=== PATIENT | female | born 1970 | race Caucasian/White ===

== ENCOUNTER → 2022-11-22 11:56 | Outpatient (CLI) | payer BC, SELFPAY ==
[2022-11-22 14:42] LABS: Follicle Stimulating Hormone 59.4 mIU/mL
== END ==
PROVIDERS: PCP Physician Assistant; Referring Provider Obstetrics & Gynecology; Visit Provider Obstetrics & Gynecology
DX: N95.1 Menopausal and female climacteric states (principal)
CPT/HCPCS: 36415; 82670; 83001

== ENCOUNTER → 2023-02-02 07:37 | Outpatient (CLI) | payer BC, SELFPAY ==
[2023-02-10 14:57] LABS: Percent Free Testosterone 0.97 % (0.50-2.80); Testosterone Free 0.17 ng/dL (0.10-0.85); Testosterone Total 17.6 ng/dL (.)
== END ==
PROVIDERS: PCP Physician Assistant; Referring Provider Obstetrics & Gynecology; Visit Provider Obstetrics & Gynecology
DX: Z78.0 Asymptomatic menopausal state (principal)
CPT/HCPCS: 36415; 84402; 84403

== ENCOUNTER → 2023-08-15 09:50 | Outpatient (CLI) | payer BC, SELFPAY ==
--- NOTE | 2023-08-15 09:51 | DI.MRI.S_ITS ---
PROCEDURE: MR CERVICAL SPINE WO CON INDICATIONS: cervical radiculopathy TECHNIQUE: Noncontrast sagittal T1 spin echo and T2 fast spin echo, sagittal STIR, foraminal oblique sagittal T2 fast spin echo, and axial gradient echo or T2 fast spin echo through the cervical spine. COMPARISON: None. FINDINGS: Image quality: Excellent. Alignment and Curvature: There is normal bony alignment. Bone Marrow: Marrow demonstrates normal overall signal. Spinal Cord: Visualized spinal cord has normal size and signal. No cerebellar tonsillar herniation. Paraspinous Soft Tissues: No paravertebral masses. Prevertebral soft tissues are normal in thickness. C2-C3: Normal appearance. C3-C4: Normal appearance. C4-C5: Normal appearance. C5-C6: Normal appearance. C6-C7: Disc space narrowing posterior disc osteophyte complex results in mild central stenosis. Hypertrophic uncovertebral joints results in moderate left and mild right foraminal stenosis C7-T1: Normal appearance. IMPRESSION: Degenerative disc disease and arthropathy at C6-7 results in moderate left and mild right foraminal stenosis Approved by: Harjinder Sotomayor M.D. on 08/16/2023 at 8:25
== END ==
PROVIDERS: PCP Physician Assistant; Referring Provider Physician Assistant Medical; Visit Provider Physician Assistant Medical
DX: M50.30 Other cervical disc degeneration, unspecified cervical region (principal); M48.02 Spinal stenosis, cervical region; M47.812 Spondylosis without myelopathy or radiculopathy, cervical region
CPT/HCPCS: 72141

== ENCOUNTER → 2023-12-31 15:55 | Outpatient (CLI) | payer BC, SELFPAY ==
--- NOTE | 2023-12-31 | DI.MG.S_ITS ---
BILATERAL DIGITAL SCREENING MAMMOGRAM 3D/2D WITH CAD: 12/31/2023 CLINICAL: Routine screening. Comparison is made to exam dated: 03/11/2022 mammogram. There are scattered areas of fibroglandular density in both breasts (category b / 25%-50% glandular tissue). Current study was also evaluated with a Computer Aided Detection (CAD) system. There are post surgical changes from interval implant explantation. There are two groups of calcification in the right breast lower inner quadrant at middle depth. No other significant masses, calcifications, or other findings are seen in either breast. IMPRESSION: INCOMPLETE: NEEDS ADDITIONAL IMAGING EVALUATION Right breast lower inner quadrant middle depth grouped calcifications. Needs additional imaging evaluation. A diagnostic mammogram is recommended. Based on the Tyrer Cuzick model (a risk assessment model) the patient's lifetime risk is 6.3% and her 10 year risk is 1.9%. According to the ACR, ACS, and NCCN guidelines, an annual breast MRI exam along with mammogram is recommended if the patient's lifetime risk is 20% or greater. This exam was interpreted at Station ID: [id number]. NOTE: For mammograms, a report in lay terms will be sent to the patient. Approximately 15% of breast malignancies will not be visualized mammographically. In the management of a palpable breast mass, a negative mammogram must not discourage biopsy of a clinically suspicious lesion. Electronically Signed By: Gladys Garcia M.D., PH.D eb/:01/04/2024 11:46:50 letter sent: Additional Imaging Needed ACR BI-RADS Category 0: Incomplete 3340F
== END ==
LOC: MAMMO 15:56
PROVIDERS: PCP Physician Assistant; Referring Provider Physician Assistant; Visit Provider Physician Assistant
DX: Z12.31 Encounter for screening mammogram for malignant neoplasm of breast (principal); R92.323 Mammographic fibroglandular density, bilateral breasts
CPT/HCPCS: 77063; 77067

== ENCOUNTER → 2024-01-20 10:17 | Outpatient (CLI) | payer BC, SELFPAY ==
--- NOTE | 2024-01-20 10:18 | DI.MG.S_ITS ---
UNILATERAL RIGHT DIGITAL DIAGNOSTIC MAMMOGRAM 3D/2D WITH ADDITIONAL VIEWS: 01/20/2024 CLINICAL: Patient returns for magnification views of microcalcifications in the right breast. Comparison is made to exams dated: 12/31/2023 mammogram - [facility] and 03/11/2022 mammogram. The right breast is heterogeneously dense, which may obscure small masses (category c / 51-75% glandular tissue). There are loosely grouped round calcifications in the right breast at 3 o'clock anterior depth. On the true lateral mammogram the calcification demonstrate layering consistent with benign milk of calcification. No other significant masses or calcifications are seen in the breast. IMPRESSION: BENIGN There is no mammographic evidence of malignancy. Right breast calcifications are consistent with benign milk of calcification. A 1 year screening mammogram is recommended. Exam findings were conveyed to the patient. Based on the Tyrer Cuzick model (a risk assessment model) the patient's lifetime risk is 7.4% and her 10 year risk is 2.2%. According to the ACR, ACS, and NCCN guidelines, an annual breast MRI exam along with mammogram is recommended if the patient's lifetime risk is 20% or greater. This exam was interpreted at Station ID: [id number]. NOTE: For mammograms, a report in lay terms will be sent to the patient. Approximately 15% of breast malignancies will not be visualized mammographically. In the management of a palpable breast mass, a negative mammogram must not discourage biopsy of a clinically suspicious lesion. Electronically Signed By: Jose Brooks M.D. slc/:01/20/2024 10:57:48 letter sent: Normal Exam ACR BI-RADS Category 2: Benign Finding(s) 3342F
== END ==
PROVIDERS: PCP Physician Assistant; Referring Provider Physician Assistant; Visit Provider Physician Assistant
DX: R92.8 Other abnormal and inconclusive findings on diagnostic imaging of breast (principal); R92.1 Mammographic calcification found on diagnostic imaging of breast; R92.331 Mammographic heterogeneous density, right breast
CPT/HCPCS: 77065; G0279

== ENCOUNTER → 2025-01-09 17:27 | Outpatient (ROUT) | payer BC, SELFPAY | PROVIDERS: PCP Physician Assistant; Visit Provider Dermatology | DX: T21.21XA Burn of second degree of chest wall, initial encounter (principal); D69.2 Other nonthrombocytopenic purpura | CPT/HCPCS: 87070; 87075; 87205 ==

== ENCOUNTER → 2025-04-13 14:47 | Outpatient (CLI) | payer BC, SELFPAY ==
--- NOTE | 2025-04-13 14:49 | DI.MG.S_ITS ---
MM screening mammo BI: 04/13/2025. BI-RADS: 2 CLINICAL: 55-year old female for bilateral screening mammogram. Tyrer-Cuzick lifetime risk of 3.6%. No personal or first-degree family history of breast cancer. The patient had a mastopexy in both breasts. PRIOR EXAMS: 01/20/2024, 12/31/2023. MAMMOGRAPHY TECHNIQUE: 2D and 3D (tomosynthesis) digital mammographic views obtained, with additional images as needed for full coverage. Current study was also evaluated with a Computer Aided Detection (CAD) system. DENSITY C. The breasts are heterogeneously dense, which may obscure small masses. MAMMOGRAPHY FINDINGS Bilateral: Benign-appearing post-surgical changes noted. There are no suspicious masses, calcifications, or other findings in the breast. IMPRESSION: * No evidence of malignancy with benign findings. RECOMMENDATIONS Bilateral * Annual screening mammography. OVERALL ASSESSMENT CATEGORY BI-RADS-2: Benign. The [employer] recommends annual screening mammography beginning at age 40 for women with average risk of breast cancer. ELECTRONICALLY SIGNED: Jose Brooks M.D. on 04/14/2025 at 05:14:42 PM PT Interpreting Station ID: [id number]
--- NOTE | 2025-04-13 14:49 | DI.RAD.S_ITS ---
PROCEDURE: XR DEXA AXIAL SKELETON INDICATIONS: Screenings COMPARISON: None. FINDINGS: Lumbar Spine: Bone mineral density 1.019 g/cm2, T score -0.3, normal. Left Femoral Neck: Bone mineral density 0.686 g/cm2, T score -1.5, osteopenia. Left Hip: Bone mineral density 0.696 g/cm2, T score -2.0, osteopenia. Fracture Risk Calculation (when applicable): 10-year fracture risk of a major osteoporotic fracture 5.9 percent and of a hip fracture 0.5 percent. (T score greater or equal to -1.0 to: NORMAL) (T score from -1.1 to -2.4: OSTEOPENIA) (T score less than or equal to -2.5: OSTEOPOROSIS) IMPRESSION: Osteopenia elevates the patient's 10 year fracture risk as described. Follow-up guidelines as follows: Osteoporosis: Consider a repeat DEXA and Vertebral Fracture Assessment (VFA) exam in 2 years or sooner if medically necessary, to reassess this patient's status. Osteopenia: Consider a repeat DEXA in 2-3 years to reassess this patient's status, or if there is a new clinical indication. Normal: Consider a repeat DEXA in 5 years or sooner, or if there is a new clinical indication. All treatment decisions require clinical judgment and consideration of individual patient factors, including patient preferences, comorbidities, previous drug use, risk factors not captured in the FRAX model (e.g., frailty, falls, vitamin D deficiency, increased bone turnover, interval significant decline in bone density ) and possible under- or over-estimation of fracture risk by FRAX. In addition, the NOF Guide recommends that FDA-approved medical therapies be considered in postmenopausal women and men age >= 50 years with a: * Hip or vertebral (clinical or morphometric) fracture * T-score of <=-2.5 at the spine or hip * Ten-year fracture probability by FRAX of >= 3% for hip fracture or >=20% for major osteoporotic fracture. Dictated by: Juani Marshall M.D. on 04/14/2025 at 14:05 Approved by: Juani Marshall M.D. on 04/14/2025 at 14:06
== END ==
LOC: RAD 14:48
PROVIDERS: PCP Physician Assistant; Referring Provider Physician Assistant; Visit Provider Physician Assistant
DX: Z12.31 Encounter for screening mammogram for malignant neoplasm of breast (principal); R92.333 Mammographic heterogeneous density, bilateral breasts; M85.852 Other specified disorders of bone density and structure, left thigh; Z78.0 Asymptomatic menopausal state
CPT/HCPCS: 77063; 77067; 77080